=== PATIENT | male | born 1995 | race Caucasian/White ===

== ENCOUNTER → 2018-05-09 16:57 | Emergency (ER) | payer OTHER ==
[~2018-05-09 16:57] MED LIST: Diazepam TAB(*) 5 MG PO ONE
--- NOTE | 2018-05-09 20:41 | ED ---
Neck Pain - HPI Summary HPI Summary: Patient with history of thoracic outlet syndrome complains of right side neck pain, numbness and tingling in right arm 2 weeks. Patient states symptoms worse today. Patient states he has been having symptoms off and on for years. Denies surgery for same. Denies fever, cough, sore throat, CP, SOB, N/V/D, abdominal pain, change in urine, change in BM. Medical history thoracic outlet syndrome - History of Current Complaint Chief Complaint: EDHeadache Stated Complaint: NECK PAIN/HEADACHE Time Seen by Provider: 05/09/18 18:01 Hx Obtained From: Patient Mechanism Of Injury: No Known Trauma Timing: Intermittent Onset/Duration: Gradual Onset Severity Initially: Moderate Severity Currently: Moderate Pain Intensity: 8 Pain Scale Used: 0-10 Numeric Character: Aching, Throbbing Aggravating Factors: Nothing Alleviating Factors: Nothing Associated Signs & Symptoms: Positive: Negative - Allergies/Home Medications Allergies/Adverse Reactions: Allergies Allergy/AdvReac Type Severity Reaction Status Date / Time No Known Allergies Allergy Verified 05/09/18 17:11 PMH/Surg Hx/FS Hx/Imm Hx Endocrine/Hematology History: Denies: Hx Anticoagulant Therapy History: Denies: Hx Dialysis Musculoskeletal History: Denies: Hx Gout Opthamlomology History: Denies: Hx Eye Prosthesis EENT History: Denies: Hx Deafness Neurological History: Denies: Hx Dementia Psychiatric History: Denies: Hx Autism Infectious Disease History: No Infectious Disease History: Denies: Traveled Outside the [place] in Last 30 Days - Social History Alcohol Use: Weekly Substance Use Type: Reports: None Smoking Status (MU): Never Smoked Tobacco Review of Systems Constitutional: Negative Eyes: Negative ENT: Negative Cardiovascular: Negative Respiratory: Negative Gastrointestinal: Negative Genitourinary: Negative Positive: Myalgia Skin: Negative Positive: Paresthesia Psychological: Normal All Other Systems Reviewed And Are Negative: Yes Physical Exam - Summary Physical Exam Summary: Patient has full range of motion and full strength with abduction and abduction flexion and extension of right upper extremity. Tenderness along right trapezius muscle. No pain with palpation of C-spine or neck. PMS intact on right hand. No pallor or cyanosis noted. Cap refill normal. 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 Triage Information Reviewed: Yes Vital Signs On Initial Exam: Initial Vitals Temp Pulse Resp BP Pulse Ox 97.2 F 61 16 160/98 100 05/09/18 17:09 05/09/18 17:09 05/09/18 17:09 05/09/18 17:09 05/09/18 17:09 Vital Signs Reviewed: Yes Appearance: Positive: Well-Appearing Skin: Positive: Warm Head/Face: Positive: Normal Head/Face Inspection Eyes: Positive: Normal Neck: Positive: Supple Respiratory/Lung Sounds: Positive: Clear to Auscultation Cardiovascular: Positive: Normal Abdomen Description: Positive: Nontender Musculoskeletal: Positive: Normal Neurological: Positive: Normal Psychiatric: Positive: Normal AVPU Assessment: Alert - [place] Coma Scale Best Eye Response: 4 - Spontaneous Best Motor Response: 6 - Obeys Commands Best Verbal Response: 5 - Oriented Coma Scale Total: 15 Diagnostics - Vital Signs Vital Signs Temp Pulse Resp BP Pulse Ox 05/09/18 19:30 16 05/09/18 19:05 16 05/09/18 17:09 97.2 F 61 16 160/98 100 - Laboratory Lab Statement: Any lab studies that have been ordered have been reviewed, and results considered in the medical decision making process. Neck Course/Dx - Course Course Of Treatment: Patient with history of thoracic outlet syndrome complains of right side neck pain, numbness and tingling in right arm 2 weeks. Patient states symptoms worse today. Patient states he has been having symptoms off and on for years. Denies surgery for same. Denies fever, cough, sore throat, CP, SOB, N/V/D, abdominal pain, change in urine, change in BM. Medical history thoracic outlet syndrome. Physical exam:Patient has full range of motion and full strength with abduction and abduction flexion and extension of right upper extremity. Tenderness along right trapezius muscle. No pain with palpation of C-spine or neck. PMS intact on right hand. No pallor or cyanosis noted. Cap refill normal. 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 Vital signs within normal limits. Patient felt much improved after Valium 5 mg by mouth. Rx for same. Referral to [facility] [place] physical therapists - Diagnoses Provider Diagnoses: Muscle spasm Discharge - Sign-Out/Discharge Documenting (check all that apply): Patient Departure Patient Received Moderate/Deep Sedation with Procedure: No - Discharge Plan Condition: Stable Disposition: HOME Prescriptions: Diazepam TAB(*) [Valium TAB(*)] 5 mg PO TID PRN 2 Days #5 tab MDD 3 tabs PRN Reason: Pain Patient Education Materials: Thoracic Outlet Syndrome (ED), Muscle Spasm (ED) Referrals: No Primary Care Phys,NOPCP [Primary Care Provider] - Additional Instructions: Follow-up with [facility] outpatient physical therapy: [address], [place], [place]. [id number]. . Return to the ED for any new or worsening symptoms. - Billing Disposition and Condition Condition: STABLE Disposition: Home
[2018-05-09 20:57] VITALS: BP 139/68
== END | disposition home or self-care (01) ==
LOC: ED 16:57
DX: M62.838 Other muscle spasm (principal); M54.2 Cervicalgia; R20.0 Anesthesia of skin; R51 Headache
CPT/HCPCS: 99284; A9270-GY